=== PATIENT | male | born 1965 | race African-American/Black ===

== ENCOUNTER 2022-06-05 07:52 | Emergency (ER) | payer OTHER, SELFPAY ==
--- NOTE | ~2022-06-05 | XR_ITS ---
EXAMINATION: XR chest 2V DATE: 06/05/2022 08:20 INDICATION: Cough TECHNIQUE: PA and lateral views of the chest are obtained. COMPARISON: 04/07/2009 FINDINGS: The lungs are free of acute opacities. No pleural effusion or pneumothorax. The cardiomedia stinal silhouette is normal. There is mild thoracic spondylosis. IMPRESSION: 1. No acute cardiopulmonary abnormality. Reviewed, dictated and finalized at location B.
[2022-06-05 07:55] VITALS: BP 134/88; PULSE 90; RESP 16; TEMP 36.1; O2SAT 98
[2022-06-05] MEDS: ALBUTEROL SULFATE NEB 2.5 MG/3 ML INH 5 MG INHALATION (09:53)
[2022-06-05] MEDS: IPRATROPIUM BR 0.02% INH SOLN 0.5 MG/2.5 ML VIAL INHALATION (09:54)
[2022-06-05 09:56] VITALS: PULSE 54; RESP 20
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
[2022-06-05 10:12] VITALS: PULSE 60; RESP 24
[2022-06-05 10:40] VITALS: BP 115/80; PULSE 60; RESP 16; O2SAT 98
== END 2022-06-05 10:40 | disposition home or self-care (01) ==
PROVIDERS: Emergency Provider Emergency Medicine
DX: J40 Bronchitis, not specified as acute or chronic (principal)
CPT/HCPCS: 71046; 94640; 99283